=== PATIENT | female | born 1990 | race Caucasian/White ===

== ENCOUNTER 2017-01-29 15:25 | Inpatient (IN) | payer OTHER ==
[~2017-01-29] VITALS: Ht 162.6 cm; Wt 61.2 kg
--- NOTE | ~2017-01-29 | PN ---
Unit #: [id number] #: [id number] Patient: VIRI PELLETIER [id number] [facility] [address] [place] [address] [id number] MR#: [id number] NAME: VIRI PELLETIER ROOM: [facility] Age: 26 Sex: F Admission Date: 01/29/2017 : 1990 Attending Physician: Hugh Clifton M.D. Admitting Physician: Hugh Clifton M.D. Primary Care Physician: Primary Care Physician Alexandria OROSCO NOTES DATE OF SERVICE: 02/01/2017 DISCUSSION Viri Pelletier is a 26-year-old female who was on 72-hour hold. The patient is withdrawn, isolative, flat affect. Reports that she is ready to go. The patient's vital signs stable; temperature 98.2, pulse 96, and blood pressure 103/56. The patient continues to be seclusive, isolative, flat affect, guarded. The patient stated she is always depressed. Complete review of systems unremarkable. MENTAL STATUS EXAMINATION General appearance, the patient dressed casually. Attention span and concentration, fair. Oriented in time, place, and person. Mood and affect, sad and dysphoric. Speech, monotone. Thought process, concrete. The patient denied any thoughts of harming self or others, but admitted with suicidal ideation. Recent and remote memory, poor. Insight and judgment, poor. DIAGNOSES 1. Major depressive disorder, recurrent, severe. 2. Alcohol use disorder, severe. 3. Amphetamine use disorder, severe. ASSESSMENT AND PLAN Advised to continue with current medication and therapeutic protocol. If needed, consider further adjustment of medication. Dictated by... Freedom Ricks/simran TD: 02/01/2017 12:12 JOB #: [id number] Unit #: [id number] #: [id number] Patient: VIRI PELLETIER LINDAMEET ANA LUISA NOTES Page 1 of 1 X Hugh Clifton MD PROGRESS NOTE
--- NOTE | ~2017-01-29 | PA ---
Unit #: [id number] #: [id number] Patient: VIRI PELLETIER [id number] [facility] [address] [place] [address] [id number] I MR#: [id number] NAME: VIRI PELLETIER ROOM: [facility] Age: 26 Sex: F Admission Date: 01/29/2017 : 1990 Date of Assessment: Attending Physician: Hugh Clifton M.D. Admitting Physician: Hugh Clifton M.D. Primary Care Physician: Primary Care Physician No PSYCHIATRIC ASSESSMENT INFORMANTS The patient reliability, fair informant; chart reliability, good. CHIEF COMPLAINT Suicidal ideation on 72-hour hold. HISTORY OF PRESENT ILLNESS Ms. Buam is a 26-year-old female, presented by EPS. The patient reported suicidal thoughts with plan to cut her wrist. The patient was transported by police on 72-hour hold. The patient reports that she is abusing alcohol, cannabis, sedative, refusing to disclose the amount. The patient tested positive for amphetamine and cannabis. The patient was subsequently placed on 72-hour hold, needing inpatient admission at this time for psychiatric stabilization. PAST PSYCHIATRIC HISTORY Remarkable for history of treatment for suicidal ideation at age 16. The patient is currently homeless. FAMILY HISTORY AND SOCIAL HISTORY Family history is unremarkable. History of depression in mother. Currently, homeless. MEDICAL HISTORY Unremarkable for any chronic medical illness. Musculoskeletal; muscle strength and tone, no atrophy or abnormal movement. Gait normal. MEDICATION HISTORY None. ALLERGIES No known drug allergies. SUBSTANCE ABUSE HISTORY Remarkable for alcohol use, age of onset 17; marijuana, age of onset 19; amphetamine, age of onset 23. REVIEW OF SYSTEMS HEENT: Eyes, clear. Ears, nose, mouth, and throat, clear. CARDIOVASCULAR: Unremarkable. RESPIRATORY: Unremarkable. GI: Unremarkable. : Unremarkable. Unit #: [id number] #: [id number] Patient: VIRI PELLETIER SKIN: Unremarkable. LYMPH NODE: Unremarkable. NEUROLOGIC: Unremarkable. ENDOCRINE: Unremarkable. HEMATOLOGIC: Unremarkable. ALLERGIC/IMMUNOLOGIC: Unremarkable. MUSCULOSKELETAL: Muscle strength and tone, no atrophy or abnormal movement. Gait normal. MENTAL STATUS EXAMINATION CONSTITUTIONAL: Measurement of vital signs; temperature 97.5, pulse 74, respirations 16, blood pressure 106/68. Height 5 feet 4 inches. Weight 135 pounds. GENERAL APPEARANCE: The patient dressed casually. The patient did not show any facial deformity. MUSCULOSKELETAL: Please see above. PSYCHIATRIC EXAMINATION Description of speech; regular rate, normal volume, normal articulation, coherent, and spontaneous. Description of thought process, goal directed. Description of association, intact. Description of abnormal psychotic thinking; the patient denied any hallucination or delusions, but mood lability, suicidal ideation. Description of the patient's judgment; concerning everyday activity, poor. Social situation, poor. Concerning psychiatric condition, poor. Complete mental status examination; oriented in time, place, and person. Recent and remote memory, poor. Attention span and concentration, fair. Recent and remote memory, poor. Insight and judgment, poor. ASSETS AND LIABILITIES Assets; the patient is articulate; able to take care of her own ADL. Liability, history of depression. ADMITTING DIAGNOSES Psychiatric: Major depressive disorder, recurrent, severe; alcohol use disorder, severe, F10.20; amphetamine use disorder, severe, F15.20; opioid use disorder, severe, F15.20. Secondary diagnosis: Deferred. Medical diagnosis: None. Stressors: Psychosocial stressors. PSYCHIATRIC PLAN AND TREATMENT GOAL AND DISCHARGE PLAN 1. Advised to admit the patient on the inpatient unit. Provide safe, supportive, and structured environment. 2. Ordered labs; CBC, CMP, UA, UDS, and test. 3. Detox protocol and detox monitoring. If needed, consider medication for depression. 4. Treatment goal; to attain euthymic mood, gain insight into her problem, and learn coping skills. 5. Discharge plan; plan to stabilize the patient and consider followup in outpatient program. ESTIMATED LENGTH OF STAY 5 days. Unit #: [id number] #: [id number] Patient: VIRI PELLETIER Dictated by... Freedom Ricks/simran TD: 01/31/2017 17:17 JOB #: [id number] PSYCHIATRIC ASSESSMENT Page 1 of 1 X Hugh Clifton MD PSYCHIATRIC ASSESSMENT
--- NOTE | ~2017-01-29 | PN ---
Unit #: [id number] #: [id number] Patient: VIRI PELLETIER [id number] [facility] [address] [place] [address] [id number] MR#: [id number] NAME: VIRI PELLETIER ROOM: [facility] Age: 26 Sex: F Admission Date: 01/29/2017 : 1990 Attending Physician: Hugh Clifton M.D. Admitting Physician: Hugh Clifton M.D. Primary Care Physician: Primary Care Physician Alexandria OROSCO NOTES DATE 01/31/2017 DISCUSSION Ms. Willson is a 26-year-old female seen on 01/31/2017. Patient interviewed. Chart reviewed. Obtained information from nursing staff. Patient was admitted on 72 hold, sad, depressed, withdrawn, isolative, guarded. Complete review of system unremarkable. MENTAL STATUS EXAMINATION General appearance, patient dressed casually. Attention span, concentration fair. Oriented in time, place and person. Mood and affect sad, dysphoric. Speech monotone. Thought process concrete. Patient denied any thoughts of harming self or others or any psychotic symptoms. Recent and remote memory poor. Insight and judgement poor. DIAGNOSES 1. Major depressive disorder, recurrent, severe. 2. Alcohol use disorder, severe. 3. Amphetamines use disorder, severe. ASSESSMENT/PLAN Advised to continue with current medication and therapeutic protocol and add Celexa 20 mg daily. If needed, consider further adjustment of medication. Dictated by... Freedom Ricks/zenia TD: 01/31/2017 17:42 JOB #: [id number] Unit #: [id number] #: [id number] Patient: VIRI PELLETIER LINDAMEET PROGRESS NOTES Page 1 of 1 X Hugh Clifton MD X PROGRESS NOTE
--- NOTE | ~2017-01-29 | CO ---
Unit #: [id number] #: [id number] Patient: VIRI PELLETIER [id number] [place] [address] [id number] I MR#: [id number] NAME: VIRI PELLETIER ROOM: [facility] Age: 26 Sex: F Admission Date: 01/29/2017 : 1990 Attending Physician: Hugh Clifton M.D. Primary Care Physician: Primary Care Physician No Consultation Date: 02/01/2017 CONSULTATION REPORT ORDERING PROVIDER Dr. Clifton. REASON FOR CONSULT Abnormal labs. SUBJECTIVE The patient denies any signs or symptoms of urinary tract infection. She denies dysuria, hematuria, low back pain, or abdominal pain. She denies myalgias or muscle cramps as well. OBJECTIVE Her examination is unremarkable. DIAGNOSTIC STUDIES LABORATORY RESULTS: Laboratory work shows urinalysis with 3+ leukocyte esterase and it was noted that when she was admitted to the hospital, she had a low potassium at 2.9, this was replaced and discharge potassium was 3.8. ASSESSMENT 1. Asymptomatic bacteriuria. 2. Hypokalemia, resolving. PLAN To repeat BMP and get a urine culture and sensitivity with gonorrhea and chlamydia. Dictated by... Patricia Zeng/simran TD: 02/01/2017 16:48 JOB #: [id number] Unit #: [id number] #: [id number] Patient: VIRI PELLETIER CONSULTATION REPORT Page 1 of 1 X PARKER ADRIAN APRN X CONSULTATION REPORT
--- NOTE | ~2017-01-29 | PN ---
Unit #: [id number] #: [id number] Patient: VIRI PELLETIER [id number] [facility] [address] [place] [address] [id number] I MR#: [id number] NAME: VIRI PELLETIER ROOM: [facility] Age: 26 Sex: F Admission Date: 01/29/2017 : 1990 Attending Physician: Hugh Clifton M.D. Admitting Physician: Hugh Clifton M.D. Primary Care Physician: Primary Care Physician Alexandria COOK PROGRESS NOTES DATE 02/02/2017 DISCUSSION Viri Pelletier is a 26-year-old female, seen on 02/02/2017. The patient interviewed, chart reviewed, and obtained information from the nursing staff. The patient was compliant and cooperative. Mood sad and dysphoric, but able to contract for safety. The patient is on 72/hour hold. REVIEW OF SYSTEMS Complete review of systems unremarkable. MENTAL STATUS EXAMINATION General appearance: Patient dressed casually, however, she was dressed in hospital attire. Attention span and concentration, fair. Mood and affect, sad and dysphoric. Speech, monotone. Thought process, concrete. The patient denied any thoughts of harming self or others or any psychotic symptoms. Recent and remote memory, poor. Insight and judgment, poor. DIAGNOSES 1. Mood disorder, NOS. 2. Polysubstance abuse. ASSESSMENT/PLAN Advised to continue with the current medication and therapeutic protocol, if needed consider further adjustment of medication. Dictated by... Freedom Ricks/mary TD: 02/04/2017 05:33 JOB #: [id number] Unit #: [id number] #: [id number] Patient: VIRI PELLETIER PROGRESS NOTES Page 1 of 1 X Hugh Clifton MD PROGRESS NOTE
--- NOTE | ~2017-01-29 | DS ---
Unit #: [id number] #: [id number] Patient: VIRI PELLETIER [id number] [facility] [address] [place] [address] [id number] I MR#: [id number] NAME: VIRI PELLETIER ROOM: [facility] Age: 26 Sex: F Admission Date: 01/29/2017 : 1990 Discharge Date: 02/03/2017 Attending Physician: Hugh Clifton M.D. Primary Care Physician: Primary Care Physician No DISCHARGE SUMMARY REASON FOR ADMISSION Depression, suicidal ideation. DIAGNOSTIC STUDIES Laboratory data, urine drug screen positive for marijuana, benzodiazepines. HOSPITAL COURSE The patient was admitted to inpatient unit on January 29, 2017, and discharged on February 03, 2017. The patient was on 72-hour hold. The patient was able to participate in all the programming. The patient maintained safe behavior, showed improvement. The patient was discharged with the plan to follow up in outpatient programming. DISCHARGE DIAGNOSES Psychiatric: Ancona I Major depressive disorder, recurrent, severe, F33.2. Alcohol use disorder, severe, F10.20. Amphetamine use disorder, severe, F15.20. Opiate use disorder, severe, F15.20. Ancona II Deferred. Ancona III None. Ancona IV Psychosocial stressors. Ancona V INSTRUCTIONS TO PATIENT The patient is to follow up in outpatient clinic as well as social work specialist. DISCHARGE MEDICATIONS Celexa 20 mg daily for depression CONDITION AT DISCHARGE The patient is pleasant, cooperative, denied any psychotic symptoms or any suicidal ideation. PROGNOSIS Guarded. DIET AND ACTIVITY As tolerated. Unit #: [id number] #: [id number] Patient: VIRI PELLETIER Dictated by... Freedom Ricks/mary TD: 02/04/2017 05:28 JOB #: [id number] DISCHARGE SUMMARY Page 1 of 1 X Hugh Clifton MD X DISCHARGE SUMMARY
--- NOTE | ~2017-01-29 | PN ---
Unit #: [id number] #: [id number] Patient: VIRI PELLETIER [id number] [facility] [address] [place] [address] [id number] I MR#: [id number] NAME: VIRI PELLETIER ROOM: [facility] Age: 26 Sex: F Admission Date: 01/29/2017 : 1990 Attending Physician: Hugh Clifton M.D. Admitting Physician: Hugh Clifton M.D. Primary Care Physician: Primary Care Physician Alexandria OROSCO NOTES DATE OF SERVICE 01/30/2017 DISCUSSION Ms. Viri Pelletier is a 26-year-old female seen on 01/30/2017. Patient interviewed, chart reviewed. Obtained information from nursing staff. Patient was compliant and cooperative. Mood sad, dysphoric, withdrawn, isolative, guarded. Still having suicidal ideation. Complete review of systems unremarkable. MENTAL STATUS EXAMINATION General appearance, patient dressed casually. Attention span and concentration fair. Oriented to place and person. Mood and affect labile. Speech monotone. Thought process concrete. Patient denied any thoughts of harming self or others or any psychotic symptoms. Recent and remote memory poor. Insight and judgement poor. DIAGNOSES 1. Major depressive disorder recurrent severe. 2. Opioid use disorder severe. 3. Cannabis abuse disorder severe. ASSESSMENT/PLAN Advise to continue with current medication and therapeutic protocol. If needed consider further adjustment of medication. Dictated by... Freedom Ricks/dimas TD: 01/30/2017 22:53 JOB #: [id number] Unit #: [id number] #: [id number] Patient: VIRI PELLETIER PROGRESS NOTES Page 1 of 1 X Hugh Clifton MD PROGRESS NOTE
--- NOTE | ~2017-01-29 | HP ---
Unit #: [id number] #: [id number] Patient: VIRI PELLETIER [id number] [place] [address] [id number] MR#: [id number] NAME: VIRI PELLETIER ROOM: [facility] Age: 26 Sex: F Admission Date: 01/29/2017 : 1990 Attending Physician: Hugh Clifton M.D. Admitting Physician: Hugh Clifton M.D. Primary Care Physician: Primary Care Physician No HISTORY AND PHYSICAL HISTORY OF PRESENT ILLNESS Viri is a 26 year old admitted to [facility] because of her polysubstance abuse which includes alcohol, marijuana and amphetamines. PAST MEDICAL HISTORY 1. Long history of illicit substance abuse. 2. History of alcohol abuse. PAST SURGICAL HISTORY Nothing reported. ALLERGIES Penicillin. SOCIAL HISTORY Smokes less than 1/2 pack per day. Drinks alcohol frequently and denies illicit drug use. However, UDS in the emergency room was positive for amphetamines and marijuana. FAMILY HISTORY Medically noncontributory. REVIEW OF SYSTEMS CONSTITUTIONAL: No fever or chills. HEENT: Denies any sore throat, ear pain or runny nose. CARDIOVASCULAR: Denies chest pain, irregular heart rhythm or palpitations. CHEST: Denies shortness of breath or cough. No hemoptysis. GASTROINTESTINAL: Denies nausea, vomiting, diarrhea or chronic constipation. ENDOCRINE: Denies history of increased thirst or urination. No recent significant weight loss or gain. GENITOURINARY: Denies dysuria, frequency, or hematuria. SKIN: Denies any rashes. HEMATOLOGIC: Denies history of increased bleeding or bruising. MUSCULOSKELETAL: Denies any hot, swollen joints. No generalized muscle pain. NEUROLOGIC: Denies problems with vision or speech. No frequent, severe headaches. No numbness, tingling or weakness in any extremities. Denies loss of bladder or bowel control. CURRENT MEDICATIONS Detox protocol. Unit #: [id number] #: [id number] Patient: VIRI PELLETIER PHYSICAL EXAMINATION GENERAL: Alert, well-nourished, in no apparent distress. VITAL SIGNS: Blood pressure 106/68, heart rate 70, respirations 16, temperature 98.6. WEIGHT: 135. HEIGHT: 5 feet 4 inches. SKIN: Warm and dry without rash or lesion. HEENT: Normocephalic. TMs not viewed. Oral and nasal passages clear. Conjunctivae clear. PERRLA. EOMs intact. NECK: Supple without lymphadenopathy or thyromegaly. HEART: Regular rate and rhythm without murmur. LUNGS: Clear. ABDOMEN: Soft, nontender. : Not done. EXTREMITIES: No evidence of cyanosis, clubbing or edema. Moves all without focal deficit. NEUROLOGICAL: Grossly within normal limits. Cranial Nerves: II: Visual briceno are intact. III, IV AND : Extraocular movements are intact. Pupils are equal, round and reactive to light. V: Facial sensation is grossly normal. VII: Facial movements and expression are normal. VIII: Auditory acuity grossly intact. IX, X: Uvula is midline. Phonation is normal. XI: Patient shrugs shoulders and turns head normally. XII: Tongue protrudes in the midline. Sensory and Motor Function: Sensory and motor sensation is grossly normal. Motor: moves all extremities well. Coordination: Gait is normal. Deep Tendon Reflexes: Intact. IMPRESSION Psychiatric admission. RECOMMENDATIONS PSYCHIATRIC: Per psychiatrist. MEDICAL: See no contraindication to participate in facility's activities. MEDICAL PROGNOSIS Good. MEDICAL CONDITION Stable. Dictated by... Saige Rivers PLicoAHoney. for Freedom Gan/zenia TD: 01/30/2017 17:40 JOB #: [id number] Unit #: [id number] #: [id number] Patient: VIRI PELLETIER HISTORY AND PHYSICAL Page 1 of 1 X Saige Rivers X HISTORY AND PHYSICAL
[~2017-01-29 15:25] MED LIST: AMOXICILLIN125 MG; PENICILLIN
[2017-01-31 13:02] LABS: URINE APPEARANCE CLOUDY; URINE BILIRUBIN NEG (NEG); URINE BLOOD NEG (NEG); URINE COLOR YELLOW; URINE GLUCOSE NEG (NEG); URINE KETONE NEG (NEG); URINE LEUKOCYTE ESTERASE 3+ (NEG); URINE NITRATE NEG (NEG); URINE PROTEIN NEG (NEG); URINE SPECIFIC GRAVITY 1.011 (1.003-1.035); URINE UROBILINOGEN 0.2 MG/DL (NEG)
[2017-01-31 13:05] LABS: URINE BACTERIA AUWI 3+ (NEGATIVE); URINE SQUAMOUS EPITHELIAL CELL MOD /[HPF]
[2017-01-31 13:24] LABS: URINE CRYSTALS CALCIUM OXALATE /[HPF]
[2017-02-02 10:00] LABS: BUN/CREATININE RATIO 18.57; CALCIUM SERUM 8.9 mg/dL (8.4-10.2); CREATININE SERUM 0.7 mg/dL (0.6-1.4); GLOM FILT RATE Estimated 120.4 mL/min (>60); POTASSIUM 4.5 mmol/L (3.5-5.1)
== END 2017-02-03 10:55 | disposition home or self-care (01) | DRG 885 ==
LOC: P1E 17:47
PROVIDERS: Psychiatry & Neurology Psychiatry
PROC: HZ2ZZZZ Detoxification Services for Substance Abuse Treatment (ICD-10-PCS; principal; 2017-01-29)
DX: F33.2 Major depressive disorder, recurrent severe without psychotic features (principal); F11.20 Opioid dependence, uncomplicated; R45.851 Suicidal ideations; F15.20 Other stimulant dependence, uncomplicated; F10.20 Alcohol dependence, uncomplicated; Z88.0 Allergy status to penicillin; F17.200 Nicotine dependence, unspecified, uncomplicated; F12.20 Cannabis dependence, uncomplicated; E87.6 Hypokalemia; R82.71 Bacteriuria
CPT/HCPCS: 80048; 81003; 86592